=== PATIENT | male | born 1960 | race Hispanic/Latino ===

== ENCOUNTER 2017-03-02 22:44 | Emergency (ER) | payer OTHER | END 2017-03-02 22:48 | disposition short-term general hospital (02) | LOC: ER 22:44 | DX: R52 Pain, unspecified (principal) ==

== ENCOUNTER → 2017-05-17 | Outpatient (CLI) | payer OTHER ==
[~2017-05-17] MED LIST: IOPAMIDOL 370 MG/ML 200 ML INFUS..BTL INJ ONE; SODIUM CHLORIDE 0.9% 50ML 50 ML ONE
[2017-05-17 10:16] LABS: BLOOD UREA NITROGEN 32 mg/dL (7-26); BUN/CREATININE RATIO 26 (6-25); CREATININE, SERUM 1.22 mg/dL (0.72-1.25); EST GLOMERULAR FILTRATION RATE > 60 ML/MIN (60-)
--- NOTE | 2017-05-17 12:11 | Diagnostic Imaging Report ---
PROCEDURE: CT ABDOMEN AND PELVIS WITH CONTRAST TECHNIQUE: The abdomen and pelvis were scanned utilizing a multidetector helical scanner from the diaphragm to the lesser trochanter after the IV administration of 100 cc of Isovue 370 and the oral administration of 900 cc water. Coronal and sagittal multiplanar reformations were obtained. DLP: 820.85 COMPARISON: None. INDICATIONS: ABDOMINAL DISTENSION FINDINGS: LOWER THORAX: Coronary artery calcifications. The lung bases are clear. HEPATOBILIARY: Hepatomegaly. Diffuse low attenuation of the hepatic parenchyma consistent with steatosis. Calcified granuloma in the segment 4B. No focal hepatic lesions. No biliary ductal dilatation. The gallbladder is surgically absent. SPLEEN: No splenomegaly. PANCREAS: No focal masses or ductal dilatation. ADRENALS: No adrenal nodules. KIDNEYS/URETERS: No hydronephrosis, stones, or solid mass lesions. Mild bilateral perinephric stranding. PELVIC ORGANS/BLADDER: Unremarkable. PERITONEUM / RETROPERITONEUM: No free air or fluid. There is a large volume of intra-abdominal visceral fat. LYMPH NODES: No lymphadenopathy. VESSELS: Atherosclerotic calcifications of the aorta and iliac arteries without aneurysmal dilatation. GI TRACT: No distention or wall thickening. A few scattered colonic diverticula without CT evidence of diverticulitis. Appendix is unremarkable. BONES AND SOFT TISSUES: Small fat-containing left inguinal hernia. Tiny periumbilical hernia contains multiple fat only. Mild spondylosis of the thoracic spine. Mild skin thickening about the umbilicus. IMPRESSION: 1. Abdominal distention is secondary to a large volume of intra-abdominal/visceral fat. No ascites. 2.Fepatic steatosis. Hepatomegaly. 3. Status post cholecystectomy. No significant biliary dilatation. Tano Roth M.D. Dictated by: Tano Roth M.D. on 05/17/2017 at 12:12 Electronically approved by: Tano Roth M.D. on 05/17/2017 at 12:12
== END ==
LOC: CT 09:24
PROVIDERS: ATTEND Family Medicine
DX: R14.0 Abdominal distension (gaseous) (principal); R18.8 Other ascites
CPT/HCPCS: 36415; 74177; 82565; 84520; Q9967